=== PATIENT | male | born 1955 | race African-American/Black ===

== ENCOUNTER 2022-04-16 22:40 | Inpatient (IN) | payer MEDICARE, SELFPAY ==
[2022-04-16 23:06] VITALS: BMI 18.4
[2022-04-16 23:57] LABS: PTT 32.5 sec (22.0-33.0); Prothrombin Time 11.2 sec (9.5-12.1)
[2022-04-17 00:05] LABS: Troponin I 0.043 ng/mL (< 0.028)
[2022-04-17 00:06] LABS: Anion Gap 12 mmol/L (10-20); BUN (Urea Nitrogen) 12 mg/dL (8.4-25.7); Calc. Creatinine Clearance 54 mL/min (70-130); Carbon Dioxide 27 mmol/L (23-31); Chloride 108 mmol/L (98-107); Estimated GFR 85; Glucose 85 mg/dL (80-115); Sodium 144 mmol/L (136-145)
[2022-04-17] MEDS ORDERED: Nitroglycerin 0.4 MG TAB (25 Tab Bottle) SL PRN (00:40)
[2022-04-17] MEDS ORDERED: Potassium Chloride 20 MEQ TAB PO SCH ×2 (01:00→05:15)
[2022-04-17] MEDS ORDERED: hydrALAZINE 20 MG/ML VIAL SLOW IVP SCH (01:30)
[2022-04-17 04:43] LABS: #Basophils 0.1 10x3/uL (0.0-0.2); #Eosinphils 0.2 10x3/uL (0.0-0.5); #Monocytes 0.6 10x3/uL (0.0-1.1); #Neutrophils 2.1 10x3/uL (1.5-8.4); %Basophils 1.2 % (0.0-2.0); %Eosinophils 3.3 % (0.0-6.0); %Lymphocytes 41.2 % (18.0-47.0); %Monocytes 11.5 % (0.0-10.0); %Neutrophils 42.6 % (40.0-75.0); Hemoglobin 11.8 g/dL (13.5-17.5); Mean Corpuscular Hemoglobin 28.3 pg (27.0-33.0); Mean Corpuscular Volume 83.2 fl (81.2-95.1); Mean Platelet Volume 10.4 fl (7.4-10.4); Platelet Count 220 10x3/uL (150-450); RBC Distribution Width 13.7 % (11.5-14.5); Red Blood Cell (RBC) Count 4.17 10x6/uL (4.32-5.72); White Blood Cell (WBC) Count 4.9 10x3/uL (3.5-10.5)
[2022-04-17 04:51] LABS: PTT 29.9 sec (22.0-33.0); Prothrombin Time 10.9 sec (9.5-12.1)
[2022-04-17 04:57] LABS: Anion Gap 12 mmol/L (10-20); BUN (Urea Nitrogen) 12 mg/dL (8.4-25.7); Calc. Creatinine Clearance 57 mL/min (70-130); Calcium 10.1 mg/dL (7.8-10.44); Carbon Dioxide 26 mmol/L (23-31); Chloride 107 mmol/L (98-107); Cholesterol 139 mg/dl (< 200 Desired); Estimated GFR 91; Glucose 105 mg/dL (80-115); HDL Cholesterol 35 mg/dL (>60 Neg Risk); LDL Cholesterol, Calculated 89 mg/dL; Potassium 3.3 mmol/L (3.5-5.1); Sodium 142 mmol/L (136-145); Triglycerides 74 mg/dL (Less than 150)
[2022-04-17 05:03] LABS: Troponin I 0.063 ng/mL (< 0.028)
[2022-04-17] MEDS ORDERED: FLU VACC QS2022-23(65YR UP)/PF 240 MCG/0.7 ML SYRINGE IM ONE (09:00)
[2022-04-17] MEDS: Potassium Chloride 20 MEQ TAB PO SCH (10:34)
[2022-04-17] MEDS: Aspirin Chewable 81 MG TAB PO SCH (10:34)
[2022-04-17] MEDS: Amlodipine 5 MG TAB PO SCH (10:35)
[2022-04-17] MEDS ORDERED: cloNIDine 0.1 MG TAB PO SCH (16:00)
[2022-04-17] MEDS ORDERED: Amlodipine 5 MG TAB PO SCH (16:00)
[2022-04-17] MEDS ORDERED: hydrALAZINE 20 MG/ML VIAL SLOW IVP PRN (17:33)
[2022-04-17] MEDS: Atorvastatin Calcium 40 MG TAB PO SCH (21:54)
[2022-04-18 04:33] LABS: Cardiac Risk 3.7 (Less than 4.5)
[2022-04-18 04:34] LABS: Troponin I 0.041 ng/mL (< 0.028)
[2022-04-18] MEDS: Aspirin Chewable 81 MG TAB PO SCH (08:24)
[2022-04-18] MEDS: Amlodipine 5 MG TAB PO SCH (08:24)
[2022-04-18] MEDS: Potassium Chloride 20 MEQ TAB PO SCH (08:25)
[2022-04-18] MEDS: Atorvastatin Calcium 40 MG TAB PO SCH (21:05)
[2022-04-19] MEDS: Potassium Chloride 20 MEQ TAB PO SCH (08:49)
[2022-04-19] MEDS: Amlodipine 5 MG TAB PO SCH (08:50)
[2022-04-19] MEDS: Aspirin Chewable 81 MG TAB PO SCH (08:50)
[2022-04-19] MEDS: Lisinopril 10 MG TAB PO SCH (09:39)
[2022-04-19] MEDS: Amlodipine 10 MG TAB PO SCH (09:39)
[2022-04-19] MEDS: Atorvastatin Calcium 40 MG TAB PO SCH (20:44)
[2022-04-20 08:45] LABS: #Basophils 0.1 10x3/uL (0.0-0.2); #Eosinphils 0.2 10x3/uL (0.0-0.5); #Monocytes 0.5 10x3/uL (0.0-1.1); #Neutrophils 2.1 10x3/uL (1.5-8.4); %Basophils 1.3 % (0.0-2.0); %Eosinophils 3.7 % (0.0-6.0); %Lymphocytes 38.1 % (18.0-47.0); %Neutrophils 45.9 % (40.0-75.0); Hemoglobin 13.3 g/dL (13.5-17.5); Mean Corpuscular HGB CONC 33.2 g/dL (32.0-36.0); Mean Corpuscular Hemoglobin 28.2 pg (27.0-33.0); Mean Corpuscular Volume 85.1 fl (81.2-95.1); Mean Platelet Volume 10.3 fl (7.4-10.4); Platelet Count 209 10x3/uL (150-450); RBC Distribution Width 13.7 % (11.5-14.5); Red Blood Cell (RBC) Count 4.71 10x6/uL (4.32-5.72); White Blood Cell (WBC) Count 4.6 10x3/uL (3.5-10.5)
[2022-04-20 09:08] LABS: Anion Gap 11 mmol/L (10-20); BUN (Urea Nitrogen) 11 mg/dL (8.4-25.7); Calc. Creatinine Clearance 55 mL/min (70-130); Carbon Dioxide 26 mmol/L (23-31); Chloride 107 mmol/L (98-107); Estimated GFR 87; Glucose 91 mg/dL (80-115); Magnesium 2.1 mg/dL (1.6-2.6); Potassium 4.4 mmol/L (3.5-5.1); Sodium 140 mmol/L (136-145)
[2022-04-20] MEDS: Aspirin Chewable 81 MG TAB PO SCH (10:33)
[2022-04-20] MEDS: Lisinopril 10 MG TAB PO SCH ×2 (10:33→10:35)
[2022-04-20] MEDS: Amlodipine 10 MG TAB PO SCH (10:34)
[2022-04-20] MEDS: Potassium Chloride 20 MEQ TAB PO SCH (10:38)
[2022-04-20 15:28] VITALS: BP 151/93; TEMP 97.9
== END 2022-04-20 16:15 | DRG 64 ==
LOC: CSHTELE 22:40 → INTOOBSV 22:40 → OBSVTOIN 04-17 19:29
PROVIDERS: ADMIT Family Medicine; ATTEND Internal Medicine
DX: I63.511 Cerebral infarction due to unspecified occlusion or stenosis of right middle cerebral artery (principal); I21.A1 Myocardial infarction type 2; E44.0 Moderate protein-calorie malnutrition; Z68.1 Body mass index [BMI] 19.9 or less, adult; G81.94 Hemiplegia, unspecified affecting left nondominant side; F17.210 Nicotine dependence, cigarettes, uncomplicated; I16.0 Hypertensive urgency; F14.10 Cocaine abuse, uncomplicated; E87.6 Hypokalemia; N18.2 Chronic kidney disease, stage 2 (mild); D53.9 Nutritional anemia, unspecified; I13.10 Hypertensive heart and chronic kidney disease without heart failure, with stage 1 through stage 4 chronic kidney disease, or unspecified chronic kidney disease; Z20.822 Contact with and (suspected) exposure to COVID-19; Z98.890 Other specified postprocedural states; Z82.49 Family history of ischemic heart disease and other diseases of the circulatory system; Z79.899 Other long term (current) drug therapy; Z82.3 Family history of stroke; Z71.51 Drug abuse counseling and surveillance of drug abuser; Z71.6 Tobacco abuse counseling
CPT/HCPCS: 36415; 70551; 80048; 80061; 83735; 84484; 85025; 85610; 85730; 93005; 93010; 93306; 93880; 96372; 96374; 96375; G0378; J0360; J1650; J3475; U0003; U0005

== ENCOUNTER 2025-01-23 14:32 | Outpatient (CLI) | payer MEDICARE, MEDICAID | END 2025-01-23 14:33 | disposition home or self-care (01) | LOC: CSHCT 14:32 | PROVIDERS: ATTEND Nurse Practitioner Adult Health | DX: R91.1 Solitary pulmonary nodule (principal); J43.9 Emphysema, unspecified | CPT/HCPCS: 71250 ==